=== PATIENT | female | born 1960 | race Caucasian/White ===

== ENCOUNTER 2016-12-22 13:18 | Emergency (ER) | payer BC ==
[~2016-12-22] VITALS: Ht 154.9 cm; Wt 76.8 kg
[~2016-12-22 13:18] MED LIST: 00186-0370-20 IH; AMBIEN 10MG10 MG PO; AMOXICILLIN 50500 MG PO; ASPIRIN 81M81 MG/TA2 PO; ASPIRIN E.C. 8181 MG PO; ASTEPRO205.5 MCG/ NS; BENADRYL25 M2 PO; BUSPAR5 MG PO; CELEBREX 1100 MG/CAP PO; CELEXA 20MG20 MG/TAB PO; CLEOCIN HC150 MG/CAP PO; COLESTID 1GM1 G PO; COZAAR100 MG PO; CYMBALTA 60MG60 MG PO; DESYREL 50MG50 MG PO; FLONASE NASAL S16 GM NS; FLOVENT DI50 MCG/Act IH; FOLIC ACID 11 MG/TA1 PO; GLUCOPHAGE500 MG/TAB PO; LYRICA 150MG C150 MG PO; MAGIC MOUTH; METHOTREXA2.5 MG/TAB PO; MOTRIN 200200 MG/TAB PO; NAPROSYN 2250 MG/TAB PO; NITROQUICK0.4 MG SL; NITROSTAT0.4 MG/TAB SL; NORCO 325 MG-7.1 TAB PO; PAMELOR 25MG25 MG PO; PEN-VEE K500 MG PO; PEPCID 20MG TAB20 MG PO; PERCOCET 325 MG1 TA2 PO; PREDNISONE 5MG5 MG PO; PREMARIN .3MG0.3 MG PO; PRIL40 PO; PRILOSEC 20MG20 MG PO; PRINIVIL20 MG PO; PROMETHAZINE12.5 M5 PO; TYLENOL 500MG500 MG PO; VALIUM 10MG10 MG/TAB PO; VISINE OP; XANAX .25M0.25 MG/TA PO; ZANAFLEX 4MG TAB4 MG PO; ZANTAC 150MG T150 MG PO; ZOFRAN 4MG T4 MG/TAB PO; ZOFRAN8 MG PO; [UNRECOGNIZED DRUG - OTHER]; [UNRECOGNIZED DRUG - OTHER] PO
[2016-12-22 13:25] VITALS: TEMP 98.4
[2016-12-22] MEDS ORDERED: ZANTAC 7575 MG PO (13:55)
[2016-12-22] MEDS ORDERED: DAZIDOX10 MG PO (13:56)
[2016-12-22] MEDS ORDERED: LYRICA 75MG CAP75 MG PO (14:07)
[2016-12-22] MEDS ORDERED: ZOLOFT 50MG50 MG PO (14:08)
[2016-12-22] MEDS ORDERED: [UNRECOGNIZED DRUG - CODE] PO (14:12)
[2016-12-22] MEDS ORDERED: MYCOLOG CREAM 115 GM TP (14:13)
[2016-12-22] MEDS ORDERED: PEN-VEE K500 MG PO (14:14)
[2016-12-22] MEDS ORDERED: RITUXAN 50500 MG/50 IV (14:15)
[2016-12-22] MEDS ORDERED: METHOTREXA2.5 MG/TAB PO (14:16)
[2016-12-22 15:12] LABS: BASO # 0.1 (0.0-0.2); BASO % 0.9 % (0.0-2.0); EOS # 0.1 (0.0-0.7); EOS % 1.6 % (0-4.0); GRAN # 4.1 (1.4-6.5); GRAN % 60.3 % (42.2-75.2); HEMATOCRIT 40.9 % (37.0-47.0); HEMOGLOBIN 13.5 g/dl (12.5-16.0); LYMPH # 1.8 (1.2-3.4); LYMPH % 26.5 % (20.0-51.0); MEAN CELL VOLUME 92 fl (80.0-100.0); MEAN CORPUSCULAR HEMOGLOBIN 30 pg (27.0-31.0); MEAN CORPUSCULAR HGB CONC 33 g/dl (33.0-37.0); MEAN PLATELET VOLUME 11.1 fl (7.4-10.4); MONO # 0.7 (0.1-0.6); MONO % 10.4 % (1.7-9.3); PLATELET COUNT 242 K/mm3 (130-400); RED BLOOD COUNT 4.47 M/mm3 (4.10-5.30); REDCELL DISTRIBUTION WIDTH-CV 12.9 % (11.5-14.5); WHITE BLOOD COUNT 6.8 K/mm3 (4.8-10.8)
[2016-12-22 15:24] LABS: ADJUSTED CALCIUM 9.3 mg/dL (8.4-10.2); ALANINE AMINOTRANSFERASE 39 U/L (9-52); ALBUMIN 4.2 gm/dL (3.5-5.0); ALKALINE PHOSPHATASE 56 U/L (50-136); ANION GAP 10 mmol/L (7-16); BILIRUBIN,TOTAL 0.7 mg/dL (0.0-1.0); BLOOD UREA NITROGEN 8 mg/dL (7-17); C-REACTIVE PROTEIN 1.4 mg/dL (0.0-0.9); CALCIUM 9.5 mg/dL (8.4-10.2); CARBON DIOXIDE 29 mmol/L (22-30); CHLORIDE 102 mmol/L (98-107); CREATININE, serum 0.63 mg/dL (0.52-1.25); GLUCOSE 122 mg/dL (74-106); POTASSIUM 4.4 mmol/L (3.4-5.0); SODIUM 140 mmol/L (137-145); TOTAL PROTEIN 7.7 gm/dL (6.4-8.2)
[2016-12-22 15:35] LABS: TROPONIN-I < 0.012 ng/mL (0.000-0.034)
[2016-12-22] MEDS ORDERED: PRIL40 PO (16:15)
[2016-12-22] MEDS ORDERED: DIFLUCAN200 MG PO (16:15)
[2016-12-22] MEDS ORDERED: CARAFATE 1GM1 G PO (16:15)
[2016-12-22] MEDS ORDERED: PAMELOR 25MG25 MG PO (16:15)
[2016-12-22 16:56] VITALS: BP 124/72; PULSE 64
== END 2016-12-22 16:57 | disposition home or self-care (01) ==
LOC: COL.ER 13:18
PROVIDERS: Emergency Medicine
DX: R07.9 Chest pain, unspecified (principal); K20.9 Esophagitis, unspecified; Z79.899 Other long term (current) drug therapy
CPT/HCPCS: C9113; J1170; J2405; J7030

== ENCOUNTER 2017-03-05 08:02 | Day surgery (SDC) | payer BC ==
[~2017-03-05] VITALS: Ht 152.4 cm; Wt 78.1 kg
[~2017-03-05 08:02] MED LIST changes: +CARAFATE 1GM1 G PO; +DAZIDOX10 MG PO; +DIFLUCAN200 MG PO; +LYRICA 75MG CAP75 MG PO; +MYCOLOG CREAM 115 GM TP; +RITUXAN 50500 MG/50 IV; +ZANTAC 7575 MG PO; +ZOLOFT 50MG50 MG PO; +[UNRECOGNIZED DRUG - CODE] PO
[2017-03-05] MEDS ORDERED: BIOFREEZE 0.2%-1 GE1 TOP (08:53)
[2017-03-05] MEDS ORDERED: BYSTOLIC5 MG PO (08:54)
[2017-03-05] MEDS ORDERED: CELEXA 20MG20 MG/TAB PO (08:54)
[2017-03-05] MEDS ORDERED: COLESTID 1GM1 G PO (08:55)
[2017-03-05] MEDS ORDERED: FENTANYL 12MCG TD (08:56)
[2017-03-05] MEDS ORDERED: PHARMASSURE V500 MCG PO (08:56)
[2017-03-05] MEDS ORDERED: CYMBALTA 20MG20 MG PO (08:56)
[2017-03-05] MEDS ORDERED: NEURONTIN300 MG/CAP PO (08:57)
[2017-03-05] MEDS ORDERED: FLONASEALLERGY NS (08:57)
[2017-03-05] MEDS ORDERED: LYRICA 50MG CAP50 MG PO (08:57)
[2017-03-05] MEDS ORDERED: NORVASC 5MG5 MG/TAB PO (09:00)
[2017-03-05] MEDS ORDERED: ZANAFLEX 4MG TAB4 MG PO (09:08)
[2017-03-05] MEDS ORDERED: [UNRECOGNIZED DRUG - OTHER] OP (09:09)
[2017-03-05] MEDS ORDERED: VESICARE 5MG5 MG PO (09:09)
[2017-03-05] MEDS ORDERED: VALTREX 50500 MG/TAB PO (09:10)
[2017-03-05] MEDS ORDERED: DESYREL 50MG50 MG PO (09:11)
[2017-03-05] MEDS ORDERED: RITUXAN 50500 MG/50 IV (09:12)
[2017-03-05] MEDS ORDERED: RESTORIL 1515 MG/CAP PO (09:13)
[2017-03-05] MEDS ORDERED: PROMETHAZINE12.5 M5 PO (09:13)
[2017-03-05] MEDS ORDERED: PROTONIX 40MG T40 MG PO (09:14)
[2017-03-05] MEDS ORDERED: MOTRIN 200200 MG/TAB PO (09:16)
[2017-03-05] MEDS ORDERED: bio cleanse PO (09:16)
[2017-03-05 09:55] VITALS: BP 129/69; PULSE 103; TEMP 97.8
[2017-03-05 13:38] VITALS: BP 128/79; PULSE 105
== END 2017-03-05 10:30 | disposition home or self-care (01) ==
LOC: SDCO 08:02
DX: K63.5 Polyp of colon (principal); R19.7 Diarrhea, unspecified; R19.4 Change in bowel habit; K21.9 Gastro-esophageal reflux disease without esophagitis; R07.9 Chest pain, unspecified; C81.90 Hodgkin lymphoma, unspecified, unspecified site; R13.10 Dysphagia, unspecified; R10.11 Right upper quadrant pain; E11.9 Type 2 diabetes mellitus without complications; I10 Essential (primary) hypertension; E78.00 Pure hypercholesterolemia, unspecified
CPT/HCPCS: J2250; J3010

== ENCOUNTER 2021-08-06 10:36 | Emergency (ER) | payer MEDICARE ==
[~2021-08-06] VITALS: Ht 152.4 cm; Wt 73.6 kg
[~2021-08-06 10:36] MED LIST changes: +BIOFREEZE 0.2%-1 GE1 TOP; +BYSTOLIC5 MG PO; +CYMBALTA 20MG20 MG PO; +FENTANYL 12MCG TD; +FLONASEALLERGY NS; +LYRICA 50MG CAP50 MG PO; +NEURONTIN300 MG/CAP PO; +NORVASC 5MG5 MG/TAB PO; +PHARMASSURE V500 MCG PO; +PROTONIX 40MG T40 MG PO; +RESTORIL 1515 MG/CAP PO; +VALTREX 50500 MG/TAB PO; +VESICARE 5MG5 MG PO; +[UNRECOGNIZED DRUG - OTHER] OP; +bio cleanse PO
[2021-08-06 10:57] VITALS: TEMP 98.2
[2021-08-06 11:08] LABS: BASO # 0.1 K/mm3 (0.0-0.2); BASO % 0.9 % (0.0-2.0); EOS # 0.4 K/mm3 (0.0-0.7); EOS % 4.2 % (0-4.0); GRAN # 4.4 K/mm3 (1.4-6.5); GRAN % 43.3 % (42.2-75.2); HEMATOCRIT 40.8 % (37.0-47.0); LYMPH # 4.4 K/mm3 (1.2-3.4); LYMPH % 42.8 % (20.0-51.0); MEAN CELL VOLUME 86 fl (80.0-100.0); MEAN CORPUSCULAR HEMOGLOBIN 30 pg (27.0-31.0); MEAN CORPUSCULAR HGB CONC 34 g/dl (33.0-37.0); MONO # 0.9 K/mm3 (0.1-0.6); MONO % 8.4 % (1.7-9.3); PLATELET COUNT 313 K/mm3 (130-400); RED BLOOD COUNT 4.75 M/mm3 (4.10-5.30); REDCELL DISTRIBUTION WIDTH-CV 12.1 % (11.5-14.5)
[2021-08-06 11:34] LABS: ALBUMIN 3.9 gm/dL (3.5-5.0); BILIRUBIN,TOTAL 0.4 mg/dL (0.2-1.2); CALCIUM 9.8 mg/dL (8.4-10.2); CREATININE, serum 0.87 mg/dL (0.57-1.11); POTASSIUM 3.6 mmol/L (3.5-4.5); TOTAL PROTEIN 6.8 gm/dL (6.2-8.1)
[2021-08-06 15:37] LABS: COLLECTION METHOD CLEAN CATCH
[2021-08-06 16:23] VITALS: BP 152/90; PULSE 90
[2021-08-06 17:39] LABS: MUCOUS Present /lpf; PH 5 (5-8); URINE APPEARANCE Hazy; URINE BACTERIA None Seen /hpf; URINE BILIRUBIN Negative (NEGATIVE); URINE BLOOD Negative (NEGATIVE); URINE COLOR Yellow; URINE GLUCOSE 3+ (NEGATIVE); URINE KETONE Negative (NEGATIVE); URINE LEUKOCYTE ESTERASE 1+ (NEGATIVE); URINE NITRATE Negative (NEGATIVE); URINE PROTEIN(semi-quant) Negative (NEGATIVE); URINE UROBILINOGEN Negative (NEGATIVE)
== END 2021-08-06 16:27 | disposition home or self-care (01) ==
LOC: COL.ER 10:36
PROVIDERS: Emergency Medicine
DX: K20.90 Esophagitis, unspecified without bleeding (principal); R07.89 Other chest pain; E11.65 Type 2 diabetes mellitus with hyperglycemia; D72.829 Elevated white blood cell count, unspecified; Z79.84 Long term (current) use of oral hypoglycemic drugs
CPT/HCPCS: J7030

== ENCOUNTER 2021-08-28 02:39 | Inpatient (IN) | payer MEDICARE ==
[~2021-08-28] VITALS: Ht 152.4 cm; Wt 67.4 kg
[2021-08-28] MEDS ORDERED: DAZIDOX20 MG PO (04:52)
[2021-08-28] MEDS ORDERED: NEURONTIN600 MG/TAB PO (04:53)
[2021-08-28] MEDS ORDERED: CIPRO 500MG TA500 MG PO (04:54)
[2021-08-28] MEDS ORDERED: MOBIC15 MG PO (04:54)
[2021-08-28] MEDS ORDERED: PROBIOTIC ACID1 EAC3 PO (04:55)
[2021-08-28] MEDS ORDERED: VALIUM 10MG10 MG/TAB PO (04:55)
[2021-08-28] MEDS ORDERED: MS CONTIN 115 MG/TAB PO (04:55)
[2021-08-28 04:56] VITALS: BP 108/54; PULSE 72; TEMP 98.2
[2021-08-28] MEDS ORDERED: CRANBERRY250 MG PO (04:56)
--- NOTE | 2021-08-28 06:00 | NUR ---
Admitted to medical floor from [facility] with ARF, VSS, 02 at 2L/nc, confused to date/year /time and place, Incontinent of soft brown stool, Looney placed per orders-lightly cloudy urine returned, all urine specimens sent down to lab, RVP sent to lab. Fall Risk- bed alarm on. IV fluids at 150cc/hr.
[2021-08-28 06:38] LABS: COLLECTION METHOD CLEAN CATCH
[2021-08-28 06:46] LABS: BASO # 0.1 K/mm3 (0.0-0.2); BASO % 0.7 % (0.0-2.0); EOS # 0.1 K/mm3 (0.0-0.7); EOS % 1.1 % (0-4.0); GRAN # 7.1 K/mm3 (1.4-6.5); GRAN % 67.8 % (42.2-75.2); HEMATOCRIT 41.9 % (37.0-47.0); HEMOGLOBIN 13.3 g/dl (12.5-16.0); LYMPH # 2.3 K/mm3 (1.2-3.4); MEAN CELL VOLUME 94 fl (80.0-100.0); MEAN CORPUSCULAR HEMOGLOBIN 30 pg (27.0-31.0); MEAN CORPUSCULAR HGB CONC 32 g/dl (33.0-37.0); MEAN PLATELET VOLUME 11.6 fl (7.4-10.4); MONO # 0.8 K/mm3 (0.1-0.6); PLATELET COUNT 194 K/mm3 (130-400); RED BLOOD COUNT 4.47 M/mm3 (4.10-5.30); REDCELL DISTRIBUTION WIDTH-CV 12.2 % (11.5-14.5)
[2021-08-28 07:01] LABS: MUCOUS Present /lpf; PH 5 (5-8); SQUAMOUS EPITHELIAL 0-2 /hpf; URINE APPEARANCE Hazy; URINE BACTERIA None Seen /hpf; URINE BILIRUBIN Negative (NEGATIVE); URINE BLOOD Negative (NEGATIVE); URINE COLOR Yellow; URINE GLUCOSE Negative (NEGATIVE); URINE KETONE Negative (NEGATIVE); URINE LEUKOCYTE ESTERASE Trace (NEGATIVE); URINE NITRATE Negative (NEGATIVE); URINE PROTEIN(semi-quant) 1+ (NEGATIVE); URINE RBC 0-2 /hpf; URINE UROBILINOGEN Negative (NEGATIVE)
[2021-08-28 07:02] LABS: CREATININE, serum 5.07 mg/dL (0.57-1.11); POTASSIUM 4.5 mmol/L (3.5-4.5)
[2021-08-28 07:45] VITALS: BP 114/59; PULSE 72; TEMP 97.3
--- NOTE | 2021-08-28 08:45 | NUR ---
PT PLEASANT, ALERT TO PLACE, SELF, COULD GIVE THE DATE BUT NOT THE YEAR. SOME CONVERSATION IS CONFUSED. BUSTILLOS EMPTIED, ASSESSMENT PERFORMED, VITALS REVIEWED, CALL LIGHT WITHIN REACH, FLUIDS INFUSING, UP WITH WALKER WITH PT, NO OTHER NEEDS AT THIS TIME.
[2021-08-28 12:44] VITALS: BP 114/60; PULSE 73; TEMP 97.6
--- NOTE | 2021-08-28 13:50 | NUR ---
The patient has had some confusion. SW attempted to meet with the patient. The patient was sleeping and would not wake. HERLINDA attempted to contact the patient's daughter, Winifred Larson (ph#[phone]). SW left her a voicemail. HERLINDA then contacted the patient's , Brandon (ph#[phone]), to discuss discharge plan. The patient has been living with their daughter, Winifred, in [place]. Brandon reports that he has been away on work in [place], [place]. He reports that he will be traveling back to [place] today by bus and that he should arrive tomorrow around 0930. He reports that the patient has been needing assistance with ADLs and that she has a cane and walker. He states that their daughter has been helping her with her ADLs. He reports that the patient used to get home health for therapy, but that she was having too much pain working with therapy, so they quit home health. The patient's primary care provider is Yadi Basurto PA-C and she receives her medications from Dariela and Yan. The patient's advanced directives are in EMR. The document designates her as her DPOA-HC and her daughter, Winifred, as the alternate. PT/OT worked with the patient and recommended to consider IPR or post-acute rehab. HERLINDA discussed this with Brandon. The patient also has stage 4 Hodgkins Lymphoma. HERLINDA inquired if the patient is on any chemo medications. Brandon thought that the patient may be. He reports that he would be interested in rehab for the patient though. He was interested in I[facility] and [facility] in [place]. Brandon reports that he will be up to the hospital tomorrow morning to visit the patient. HERLINDA consulted IPR Director, Digna. HERLINDA contacted and faxed a referral to Trish at [facility]. Awaiting screens. HERLINDA contacted BEYT Borges with Dr. Ovalle, to inquire about treatment and to inform her of therapy's recommendation. Katerina reports that they have not seen the patient since 2019 and that the patient would probably be good to go to rehab. *Discharge plan: post-acute rehab-awaiting screens*
--- NOTE | 2021-08-28 14:16 | NUR ---
Primary nurse was assisted with [id number] patient care by [employer] student Tameka Oates and [employer] instructor Marilyn Christina MSN, RN
--- NOTE | 2021-08-28 15:16 | NUR ---
print binding and finishing worker contacted by [facility]. 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 In formed them that as of right now, it is looking like a short term skilled stay. Facility is worried about the patient's payor source only being MCR. Unknow if a TRUDI isi. has been started. VV asked for a copy of the DPOA. Faxed what was found in PCI to [phone]. Agreement was made to have HERLINDA Valerio follow up tomorrow.
[2021-08-28 15:21] VITALS: BP 107/58; PULSE 68; TEMP 97.6
--- NOTE | 2021-08-28 17:18 | NUR ---
PT CONFUSED, VERY DROWSY, IV FLUIDS INFUSING, MEDICATIONS GIVEN PER SCHEDULE, DENIES PAIN, FAMILY MEMBERS UPDATED MULTIPLE TIMES, NO OTHER NEEDS
--- NOTE | 2021-08-28 19:40 | NUR ---
Report received assumed care for shift nurse manager. Assessment complete. A&Ox1 only. Very drowsy-falls asleep in conversation. Denies nausea/shortness of breath. No s/s of pain noted. TELE showing SR. Looney cath with clear yellow urine. IV to left AC with NS@150ml/hr. Plan of care discussed for this shift to include meds/calling for questions concerns. Call light in reach/bed alarm on. Will monitor.
[2021-08-28 19:55] VITALS: BP 114/59; PULSE 68; TEMP 98.5
[2021-08-29] VITALS (8 sets, daily range): BP systolic 93–147; BP diastolic 47–76; PULSE 69–87; TEMP 97.6–98.5
[2021-08-29 07:15] LABS: BASO % 0.5 % (0.0-2.0); EOS # 0.1 K/mm3 (0.0-0.7); EOS % 1.5 % (0-4.0); GRAN # 5.3 K/mm3 (1.4-6.5); GRAN % 61.9 % (42.2-75.2); LYMPH # 2.2 K/mm3 (1.2-3.4); LYMPH % 26.4 % (20.0-51.0); MEAN CELL VOLUME 92 fl (80.0-100.0); MEAN CORPUSCULAR HEMOGLOBIN 30 pg (27.0-31.0); MEAN CORPUSCULAR HGB CONC 33 g/dl (33.0-37.0); MEAN PLATELET VOLUME 11.9 fl (7.4-10.4); MONO # 0.8 K/mm3 (0.1-0.6); MONO % 9.5 % (1.7-9.3); PLATELET COUNT 149 K/mm3 (130-400); RED BLOOD COUNT 4.01 M/mm3 (4.10-5.30); REDCELL DISTRIBUTION WIDTH-CV 12.4 % (11.5-14.5)
[2021-08-29 07:17] LABS: HEMATOCRIT 36.8 % (37.0-47.0)
[2021-08-29 07:31] LABS: CALCIUM 8.4 mg/dL (8.4-10.2); CREATININE, serum 4.53 mg/dL (0.57-1.11); MAGNESIUM 2.3 mg/dL (1.6-2.6); POTASSIUM 4.6 mmol/L (3.5-4.5)
--- NOTE | 2021-08-29 07:50 | NUR ---
ASSESSMENT PERFORMED, PT ALERT, ORIENTED X2, PT EASILY DISTRACTED AND WOULD NOT FOLLOW MOST COMMANDS OR ANSWER MOST QUESTIONS, IV FLUIDS INFUSING, VITALS REVIEWED, PT REPORTS CHRONIC PAIN BUT CANNOT TELL WHERE IT IS, PT HAS BUSTILLOS DRAINING, NO OTHER NEEDS AT THIS TIME
--- NOTE | 2021-08-29 14:33 | NUR ---
Primary nurse was assisted with [id number] patient care by [employer] student Betty Suarez and [employer] instructor Marilyn Christina MSN, RN
--- NOTE | 2021-08-29 14:37 | NUR ---
HERLINDA contacted Trish at [facility] to follow up on the referral. Trish reports that they can meet the patient's needs and they would be able to accept her. HERLINDA faxed updates to [facility]. HERLINDA then contacted and updated the patient's , Brandon. Brandon confirms that he is back home now. He is agreeable with the patient going to [facility]. SW to continue to follow. *Discharge plan: [facility] vs [facility]*
--- NOTE | 2021-08-29 19:30 | NUR ---
Report received, assumed care for finance professor. Assessment complete. A&O to self. Very confused converstaion. Very drowsy falling asleep off and on during assessment-day shift stated patient was up all day and more oriented. VS remain stable. Denies nausea/shortness of breath. Grimacing and moaning out states "my legs and back hurt." Tramadol given per dr order. Plan of care discussed for this shift to include medications/monitoring with tele/calling for questions/concerns. Call light in reach. Will monitor.
[2021-08-30 03:08] VITALS: BP 157/75; PULSE 95; TEMP 98.4
--- NOTE | 2021-08-30 03:24 | NUR ---
C/O pain-is alert but not oriented. When asked where she hurts states "all over." Grimacing and light moaning. Tramadol given per dr order. Denies any other c/o at this time. Will monitor.
[2021-08-30 08:52] VITALS: BP 151/74; PULSE 116; TEMP 99.8
[2021-08-30 09:53] LABS: CALCIUM 8.9 mg/dL (8.4-10.2); CREATININE, serum 4.21 mg/dL (0.57-1.11); MAGNESIUM 1.9 mg/dL (1.6-2.6); POTASSIUM 4.1 mmol/L (3.5-4.5)
[2021-08-30 12:14] VITALS: BP 144/64; PULSE 109; TEMP 99.5
--- NOTE | 2021-08-30 13:19 | NUR ---
Patient has been very drowsy today. Only opening her eyes to name being called. Patient was given a bed bath and sheets were changed by this RN and Lian - CARL. Patient is not communicating verbally. No PO meds have been administered as patient is too drowsy. Patient also not eating any food.
[2021-08-30 13:47] LABS: ALANINE AMINOTRANSFERASE 24 U/L (0-55); ALKALINE PHOSPHATASE 48 U/L (40-150); AST,SGOT 19 U/L (5-34)
[2021-08-30 16:15] VITALS: BP 142/77; PULSE 102; TEMP 101.6
--- NOTE | 2021-08-30 19:30 | NUR ---
Bedside shift report received, assumed care for detective chief. Assessment complete. Alert but not oriented-very drowsy and lethargic. Follows commands but falls back to sleep very quickly. VS stable. Bedside glucose 169. Low grade temp-will administer tylenol when time. Looney cath with clear yellow urine. No s/s of pain noted. Call light in reach/bed alarm on. Will monitor.
[2021-08-30 19:50] VITALS: BP 134/64; PULSE 85; TEMP 98.7
--- NOTE | 2021-08-30 19:58 | NUR ---
O2 Sat noted to be 91% on room air. O2 applied at this time 1L/NC with O2 sats 94%. Marciano hinton.
[2021-08-30 23:41] VITALS: BP 117/65; PULSE 72; TEMP 98
[2021-08-31 04:16] VITALS: BP 138/73; PULSE 69; TEMP 97.8
--- NOTE | 2021-08-31 05:43 | NUR ---
Much more alert this AM. Answering questions with appropriate conversation. Asked "how much longer am I going to be in the hospital." VS remained stable overnight-afebrile. Denies nausea/shortness of breath/pain. Denies current needs. Call light in reach. Will monitor.
[2021-08-31 08:09] VITALS: BP 142/60; PULSE 74; TEMP 97.7
[2021-08-31 08:09] LABS: BASO % 0.3 % (0.0-2.0); EOS % 0.4 % (0-4.0); GRAN # 6.3 K/mm3 (1.4-6.5); GRAN % 69.9 % (42.2-75.2); HEMATOCRIT 38.1 % (37.0-47.0); HEMOGLOBIN 12.6 g/dl (12.5-16.0); LYMPH # 1.9 K/mm3 (1.2-3.4); LYMPH % 21.3 % (20.0-51.0); MEAN CELL VOLUME 89 fl (80.0-100.0); MEAN CORPUSCULAR HEMOGLOBIN 30 pg (27.0-31.0); MEAN CORPUSCULAR HGB CONC 33 g/dl (33.0-37.0); MEAN PLATELET VOLUME 12.7 fl (7.4-10.4); MONO # 0.7 K/mm3 (0.1-0.6); MONO % 7.3 % (1.7-9.3); PLATELET COUNT 104 K/mm3 (130-400); RED BLOOD COUNT 4.27 M/mm3 (4.10-5.30); REDCELL DISTRIBUTION WIDTH-CV 12.5 % (11.5-14.5)
[2021-08-31 08:28] LABS: CALCIUM 8.3 mg/dL (8.4-10.2); CREATININE, serum 3.75 mg/dL (0.57-1.11); MAGNESIUM 1.8 mg/dL (1.6-2.6); POTASSIUM 4.2 mmol/L (3.5-4.5)
--- NOTE | 2021-08-31 09:17 | NUR ---
Pt awake upon entry, no C/O pain at this time. Had small BM this AM. Shift assessment complete, left Pt call light in reach, bed in lowest position.
[2021-08-31 11:27] VITALS: BP 140/71; PULSE 73; TEMP 98.6
[2021-08-31 16:18] VITALS: BP 148/72; PULSE 73; TEMP 98.7
--- NOTE | 2021-08-31 19:30 | NUR ---
Bedside shift report received, assumed care for shift manager. Assessment complete. A&Ox4. Denies nausea/shortness of breath. VS remain stable. Very conversational this shift compared to the last three. C/O pain to feet-rating pain 3/10 on pain scale-described as constant ache. States she took some tylenol earlier and it really helped and will call if she wants it again. Incontinent of bowel-alejandro care complete. Noted to have more redness to buttocks compared to yesterday. Skin barrier applied. Plan of care discussed for this shift to include meds/repositioning/calling for questions/concerns. Verbalizes understanding/denies current needs. Call light in reach/bed alarm on. Will monitor. monitor.
[2021-08-31 19:58] VITALS: BP 137/89; PULSE 68; TEMP 98
[2021-09-01 00:07] VITALS: BP 133/66; PULSE 65; TEMP 98.5
[2021-09-01 03:10] VITALS: BP 147/61; PULSE 58; TEMP 97.9
--- NOTE | 2021-09-01 03:22 | NUR ---
Called out to nurses station stating she had an accident. Incontinent of bowl at this time. Margarita care provided and barrier cream applied to buttocks due to redness and irritation. Still A&Ox4. Denies any other needs at this time. Will monitor.
--- NOTE | 2021-09-01 03:41 | NUR ---
Patient has not slept all night. Has been repositioning self in bed/sitting up and laying down with occasional moaning. States she cant get comfortable due to being in pain. Did receive tylenol at 0030-states it didnt really help that much. Currently rating pain 10/10 all over-states "my whole body just hurts." Hospitalist, Trudy BISWAS notified and new orders received and initiated.
[2021-09-01 06:50] LABS: CALCIUM 8.1 mg/dL (8.4-10.2); CREATININE, serum 3.05 mg/dL (0.57-1.11); MAGNESIUM 1.5 mg/dL (1.6-2.6); POTASSIUM 3.6 mmol/L (3.5-4.5)
[2021-09-01 08:05] VITALS: BP 141/71; PULSE 63; TEMP 98.3
--- NOTE | 2021-09-01 08:41 | NUR ---
Pt sleeping upon entry to room, no C/O pain at this time. Shift assessment complete, left Pt call light in reach. bed in lowest position.
[2021-09-01 11:59] VITALS: BP 154/74; PULSE 63; TEMP 97.6
--- NOTE | 2021-09-01 13:25 | NUR ---
HERLINDA staffed with the PA. The patient may be able to discharge in a couple of days. HERLINDA notified and faxed updates to Trish at [facility].
[2021-09-01 16:42] VITALS: BP 149/65; PULSE 63; TEMP 97.8
--- NOTE | 2021-09-01 20:15 | NUR ---
Initial shift assssment done- states having pain all over 10/10, moaning, will give Tylenol and also will call Trudy MARTINEZ to see if anything else can be ordered. IV fluids of 1/2 NS at 100cc/hr. Looney with cloudy light yellow urine. Confused as to month/day/time-
[2021-09-01 20:18] VITALS: BP 136/68; PULSE 84; TEMP 97.5
[2021-09-02] VITALS (7 sets, daily range): BP systolic 137–157; BP diastolic 63–90; PULSE 61–82; TEMP 97.6–98.4
--- NOTE | 2021-09-02 05:02 | NUR ---
IV was leaking - DC,d,, did try to restart IV site without success, supervisor machine setter aware and will come when she can to restart IV. Pt did have incontinenece of loose stool x2 tonight.
--- NOTE | 2021-09-02 05:52 | NUR ---
Refusing IV start- informed Trudy BISWAS - she will put in order for a PICC today
[2021-09-02 06:47] LABS: BASO % 0.4 % (0.0-2.0); EOS # 0.3 K/mm3 (0.0-0.7); GRAN # 6.2 K/mm3 (1.4-6.5); GRAN % 65.9 % (42.2-75.2); HEMATOCRIT 37.3 % (37.0-47.0); HEMOGLOBIN 12.6 g/dl (12.5-16.0); LYMPH # 1.9 K/mm3 (1.2-3.4); LYMPH % 20.5 % (20.0-51.0); MEAN CELL VOLUME 87 fl (80.0-100.0); MEAN CORPUSCULAR HEMOGLOBIN 29 pg (27.0-31.0); MEAN CORPUSCULAR HGB CONC 34 g/dl (33.0-37.0); MEAN PLATELET VOLUME 12.5 fl (7.4-10.4); MONO # 0.9 K/mm3 (0.1-0.6); MONO % 9.7 % (1.7-9.3); PLATELET COUNT 176 K/mm3 (130-400); REDCELL DISTRIBUTION WIDTH-CV 12.5 % (11.5-14.5)
--- NOTE | 2021-09-02 07:00 | NUR ---
Report received from BETY Martinez. PT in bed resting with eyes closed, will continue to monitor.
[2021-09-02 07:12] LABS: CALCIUM 8.6 mg/dL (8.4-10.2); CREATININE, serum 2.52 mg/dL (0.57-1.11); MAGNESIUM 1.6 mg/dL (1.6-2.6); POTASSIUM 3.5 mmol/L (3.5-4.5)
--- NOTE | 2021-09-02 10:00 | NUR ---
Assessment charted. Pt c/o pain to entire body, achiness, and feeling queesy. PRN tylenol provided and sprite given per request. Pt in bed resting on side, wants to get camp out, called Marielos BISWAS and will remove. Pt has no IV access, okay per hospitalist to remain without IV access and no PICC to be placed. Will ocnitnue to monitor.
--- NOTE | 2021-09-02 10:44 | NUR ---
PT unable to answer all orientation questions appropriately. Removed camp catheter per bhavesh, pt tolerated well. Denies othre needs at thsi time, will ocnitnue to monitor.
--- NOTE | 2021-09-02 15:26 | NUR ---
HERLINDA faxed updates to Trish at [facility].
--- NOTE | 2021-09-02 17:31 | NUR ---
PT RESTING IN BED. ONLY WANTS TO EAT A BANANA AND YOGURT FOR DINNER. HAD THE SAME FOR LUNCH. NO SIGNS/ SYMPTOMS OF DISTRESS, NO COMPLAINTS OF PAIN. CALL LIGHT WITHIN REACH
--- NOTE | 2021-09-02 21:08 | NUR ---
Patient resting in bed upon enter the room. Patient reports some generalized pain all over the body and headache. PRN Tylenol given. Patient A/Ox3. Able to answer most of orientation questions properly. Patient refused dinner. Patient states no appetite. Patient states she will eat banana when she gets hungry. Assisted patient to use bathroom to void. Stand-by assist provided. All scheduled meds given per DEC. Call light in reach. Will continue to monitor.
--- NOTE | 2021-09-02 23:58 | NUR ---
Patient c/o intermittent sharp pain to her right leg around 2300. Patient states she is so uncomfortable and couldn't fall asleep. Patient requesting some sleeping meds and pain med. PRN Tylenol and Melatonin given. Warm blanket provided and wrapped around her leg. Call light in reach. Will continue to monitor.
[2021-09-03 03:59] VITALS: BP 142/90; PULSE 95; TEMP 97.4
[2021-09-03 06:47] LABS: BASO % 0.4 % (0.0-2.0); EOS # 0.3 K/mm3 (0.0-0.7); EOS % 3.1 % (0-4.0); GRAN # 5.5 K/mm3 (1.4-6.5); GRAN % 59.8 % (42.2-75.2); HEMOGLOBIN 12.8 g/dl (12.5-16.0); LYMPH # 2.4 K/mm3 (1.2-3.4); LYMPH % 25.6 % (20.0-51.0); MEAN CELL VOLUME 85 fl (80.0-100.0); MEAN CORPUSCULAR HEMOGLOBIN 30 pg (27.0-31.0); MEAN CORPUSCULAR HGB CONC 35 g/dl (33.0-37.0); MEAN PLATELET VOLUME 12.3 fl (7.4-10.4); MONO % 10.7 % (1.7-9.3); PLATELET COUNT 163 K/mm3 (130-400); RED BLOOD COUNT 4.33 M/mm3 (4.10-5.30); REDCELL DISTRIBUTION WIDTH-CV 12.5 % (11.5-14.5)
[2021-09-03 06:49] LABS: HEMATOCRIT 36.7 % (37.0-47.0)
[2021-09-03 07:10] LABS: CALCIUM 9.1 mg/dL (8.4-10.2); CREATININE, serum 1.83 mg/dL (0.57-1.11); POTASSIUM 3.2 mmol/L (3.5-4.5)
--- NOTE | 2021-09-03 07:25 | NUR ---
REPROT RECIEVED FROM BETY CERRATO. NO SIGNS OR SYMPTOMS OF DISTRESS, NO COMPLAINTS OF PAIN. CALL LIGHT WITHIN REACH
[2021-09-03 08:13] VITALS: BP 163/79; PULSE 77; TEMP 97.9
--- NOTE | 2021-09-03 09:35 | NUR ---
ASSESSMENT COMPLETE. NO IV LINE, HOWEVER THERE IS AN ORDER STATING THAT IS OKAY. NO SIGNS OF DISTRESS NOTED. PT IS UP IN CHAIR ENJOYING A BANANA. REPORTS NO PAIN THIS AM. REDDENED AREA TO SACRUM NOTED. NO OTHER SKIN ISSUES. CALL LIGHT WITHIN REACH
[2021-09-03] MEDS ORDERED: AMOXICILLIN/CLA1 TA1 PO (09:51)
[2021-09-03] MEDS ORDERED: TYLENOL 325MG325 MG PO (09:52)
--- NOTE | 2021-09-03 10:38 | NUR ---
The hospitalist is ready to discharge the patient today. HERLINDA followed up with Digna, IPR Director, on referral. Digna reports that they are unable to take any new admissions today. HERLINDA followed up with the patient to update. The patient contacted her , Brandon, and had him on speaker phone. The patient and Brandon are in agreement to SNF at [facility]. Brandon asked if he could transport the patient. HERLINDA presented and read the IM form outloud to the patient. The patient verbalized understanding and signed the form. HERLINDA provided her with a copy. HERLINDA updated Trish at [facility]. Trish contacted Brandon and he will be at the hospital at 1230 to transport the patient. HERLINDA updated the patient and her RN of the transport time. The patient is to discharge today, 09/03, to [facility] for a skilled stay. Transportation was scheduled at 1230, via private vehicle. No additional needs at this time.
[2021-09-03 11:23] VITALS: BP 143/70; PULSE 75; TEMP 98
[2021-09-03 12:00] VITALS: BP 143/70; PULSE 75; TEMP 98
== END 2021-09-03 12:23 | DRG 682 ==
LOC: MEDICAL 02:39
PROVIDERS: Internal Medicine; Nurse Practitioner Family; Physician Assistant; ADMIT Internal Medicine
DX: N17.9 Acute kidney failure, unspecified (principal); G93.41 Metabolic encephalopathy; C81.90 Hodgkin lymphoma, unspecified, unspecified site; E87.2 Acidosis; I10 Essential (primary) hypertension; E78.5 Hyperlipidemia, unspecified; E11.9 Type 2 diabetes mellitus without complications; M06.9 Rheumatoid arthritis, unspecified; K21.9 Gastro-esophageal reflux disease without esophagitis; G89.29 Other chronic pain; K20.90 Esophagitis, unspecified without bleeding; N12 Tubulo-interstitial nephritis, not specified as acute or chronic; E83.42 Hypomagnesemia; N00.9 Acute nephritic syndrome with unspecified morphologic changes; G72.9 Myopathy, unspecified; R62.7 Adult failure to thrive; Z79.84 Long term (current) use of oral hypoglycemic drugs; Z85.3 Personal history of malignant neoplasm of breast; Z23 Encounter for immunization
CPT/HCPCS: 99223-AI; 99232-AI; 99233-AI; 99239; C9113; J0696; J1644; J1815; J2543; J3475; J7030